=== PATIENT | female | born 1975 | race Hispanic/Latino ===

== ENCOUNTER 2020-12-15 08:25 | Observation (INO) | payer OTHER ==
[~2020-12-15] VITALS: Ht 157.5 cm; Wt 78.0 kg
[2020-12-15 08:25] VITALS: BP 142/97
[2020-12-15] MEDS ORDERED: ZOFRAN IV STA (08:45)
[2020-12-15] MEDS ORDERED: ASPIRIN PO STA (08:45)
[2020-12-15] MEDS ORDERED: ASPIRIN ONE (08:49)
[2020-12-15] MEDS ORDERED: ZOFRAN ONE (08:49)
--- NOTE | 2020-12-15 08:50 | ER.PDOC ---
General Chief Complaint: Chest Pain-Cardiac Nature Stated Complaint: CP,SOB Time seen by MD: 08:48 Source: patient Exam Limitations: no limitations History of Present Illness Initial Comments Chest pain and SOB for 1 week worse this morning. Pain is in her left chest. She also has severe headache for 1 week affected by lights. Timing/Duration: 1 week Severity/Quality: pressure Radiation: no radiation Activities at Onset: none Prior CP/Workup: Cardiac Cath, Heart Attack Nitro Today/Relief: 0.4 mg x 1 Aspirin Today: 325 mg x 1, Provided By ED Associated Symptoms: nausea/vomiting, shortness of breath Allergies: Coded Allergies: No Known Allergies (Unverified , 12/15/20) Home Meds Reported Medications Hydrochlorothiazide (HYDROCHLOROTHIAZIDE) 25 Mg Tablet, 1 TAB PO DAILY, #30 TAB 5 Refills 12/15/20 Past Medical History Medical History: coronary artery disease, hypertension Surgical History: cardiac cath, stent Family History Significant Family History: no pertinent family hx Social History Smoking: non-smoker Alcohol Use: none Drug Use: none Constitutional: no symptoms reported EENTM: no symptoms reported Respiratory: see HPI Cardiovascular: see HPI Gastrointestinal: no symptoms reported Genitourinary: no symptoms reported All Other Systems: Reviewed and Negative Physical Exam General Appearance: No Apparent Distress, WD/WN Neck: Non-Tender, Full Range of Motion, Supple, Normal Inspection Respiratory: chest non-tender, lungs clear, normal breath sounds, no respiratory distress, no accessory muscle use Cardiovascular: Normal Peripheral Pulses, Regular Rate, Rhythm, No Edema, No Gallop, No JVD, No Murmur Gastrointestinal: Normal Bowel Sounds, No Organomegaly, No Pulsatile Mass, Non Tender, Soft Extremities: Normal Range of Motion, Non-Tender, Normal Inspection, No Pedal Edema, No Calf Tenderness, Normal Capillary Refill Neurologic/Psychiatric: surveillance director II-XII NML as Tested, No Motor/Sensory Deficits, Alert, Normal Mood/Affect, Oriented x 3 Skin: Normal Color, Warm/Dry Results/Orders Results/Orders Orders - CLARA LUA MD Cbc With Auto Diff (12/15/20 08:45) Comprehensive Metabolic Panel (12/15/20 08:45) Creatine Kinase (12/15/20 08:45) Troponin I (12/15/20 08:45) Probnp B-Type Pipe Foreman (12/15/20 08:45) PT (12/15/20 08:45) Partial Thromboplastin Time. (12/15/20 08:45) D-Dimer (12/15/20 08:45) Xr Chest 1v (12/15/20 08:45) Ekg-Routine (12/15/20 08:45) Ct Head Wo Contrast (12/15/20 08:45) Nitroglycerin (Nitrostat) (12/15/20 09:00) Ondansetron Hcl/Pf (Zofran) (12/15/20 08:45) Aspirin (Aspirin) (12/15/20 08:45) Aspirin (Aspirin) (12/15/20 08:49) Ondansetron Hcl/Pf (Zofran) (12/15/20 08:49) Covid19 Antigen Radha Vivi (12/15/20 09:53) Covid Resp [place] (12/15/20 09:53) Vital Signs Date Time Temp Pulse Resp B/P (MAP) Pulse Ox O2 Delivery O2 Flow Rate FiO2 12/15/20 08:25 98.2 93 16 142/97 (112) 99 Room Air 12/15/20 08:25 98.2 93 16 12/15/20 08:25 98.2 93 16 99 Administered Medications Medications (Trade) Dose Ordered Sig/Katrin Route PRN Reason Start Time Stop Time Status Last Admin Dose Admin Aspirin (Aspirin) 325 mg STAT STAT PO 12/15/20 08:45 12/15/20 08:47 DC 12/15/20 08:54 325 MG Nitroglycerin (Nitrostat) 0.4 mg PRN PRN SL CHEST PAIN 12/15/20 09:00 01/14/21 08:59 12/15/20 09:29 0.4 MG Ondansetron HCl (Zofran) 4 mg STAT STAT IV 12/15/20 08:45 12/15/20 08:47 DC 12/15/20 08:54 4 MG Laboratory Tests Test 12/15/20 08:36 White Blood Count 7.0 10^3/uL (4.5-11.0) Red Blood Count 4.82 10^6/uL (4.00-5.20) Hemoglobin 14.1 g/dL (12.0-15.0) Hematocrit 40.6 % (36.0-46.0) Mean Corpuscular Volume 84.2 fL (78-100) Mean Corpuscular Hemoglobin 29.3 pg (26-34) Mean Corpuscular Hemoglobin Concent 34.7 g/dL (33-36.5) Red Cell Distribution Width 13.2 % (11.5-14.5) Platelet Count 424 10^3/uL (150-400) H Mean Platelet Volume 8.3 fL (7.8-11.0) Neutrophils (%) (Auto) 67.3 % (41.0-85.0) Lymphocytes (%) (Auto) 23.0 % (24.0-44.0) L Monocytes (%) (Auto) 7.2 % (5.0-12.0) Neutrophils # (Auto) 4.7 10^3/uL (1.8-7.7) Lymphocytes # (Auto) 1.60 10^3/uL1 (1.0-4.8) Monocytes # (Auto) 0.5 10^3/uL (0.3-0.8) Absolute Immature Granulocyte (auto 0.04 10^3 u/L (0-2) Absolute Eosinophils (auto) 0.1 10^3/uL (0.0-0.2) Immature Granulocytes % 0.60 % (0.00-0.50) H Eosinophils % 1.3 % (0.0-5.0) Basophils % 0.6 % (0.0-0.2) H Basophils # 0.0 10^3/uL (0.0-0.1) Prothrombin Time 10.3 SEC (9.3-11.3) Prothrombin Time INR (Non-Therap) 1.0 Activated Partial Thromboplast Time 25.4 SEC (24.67-30.72) D-Dimer 0.30 mg/L (0.19-0.49) Sodium Level 138 mmol/L (132-145) Potassium Level 3.7 mmol/L (3.6-5.2) Chloride Level 102.0 mmol/L (96-109) Carbon Dioxide Level 25.4 mmol/L (20.0-32) Anion Gap 14.3 Blood Urea Nitrogen 9 mg/dL (7-18) Creatinine 0.64 mg/dL (0.59-1.40) Estimated GFR () 122.0 (>/=60) Est GFR (CKD-EPI)(Non-Afr Yemeni) 100.8 (>/=60) BUN/Creatinine Ratio 14.0 Glucose Level 117 mg/dL (70-110) H Calcium Level 9.0 mg/dL (8.4-10.5) Total Bilirubin 0.4 mg/dL (0.2-1.0) Aspartate Amino Transferase (AST) 23 U/L (0-35) Alanine Aminotransferase (ALT) 31 U/L (12-78) Alkaline Phosphatase 67 U/L (50-136) Total Creatine Kinase 102 U/L (26-192) Troponin I < 0.02 ng/mL (0.00-0.05) Pro-B-Type Natriuretic Peptide 20 pg/mL (0-125) Total Protein 8.1 g/dL (6.4-8.2) Albumin 3.8 g/dL (3.4-5.0) Globulin 4.3 Albumin/Globulin Ratio 0.883 EKG/XRAY/CT/US EKG: NSR, LVH, no ST T wave changes EKG Comments: rate 89 XRAY: chest (No active disease) CT Comments: No acute intracranial abnormality ER DEPART Departure Time of Disposition: 09:35 Disposition: 09 ADMITTED INPATIENT Impression: Primary Impression: Chest pain Additional Impression: Headache Condition: Stable Referrals: PCP,UNKNOWN (PCP) PRIMARY CARE PROVIDER Comments Admitted to Dr. Paz Duration or Time Spent with Pa: 60 min Problem Qualifiers Primary Impression: Chest pain Chest pain type: unspecified Qualified Codes: R07.9 - Chest pain, uns pecified Additional Impression: Headache Headache type: unspecified Headache chronicity pattern: acute headache Intractability: intractable Qualified Codes: R51.9 - Headache, unspecified CLARA LUA MD Dec 15, 2020 08:50
[2020-12-15 08:52] LABS: BASOPHIL % 0.6 % (0.0-0.2); EOSINOPHIL # 0.1 10^3/uL (0.0-0.2); EOSINOPHIL % 1.3 % (0.0-5.0); MEAN CORP HGB 29.3 pg (26-34); MONOCYTES # 0.5 10^3/uL (0.3-0.8); MONOCYTES % 7.2 % (5.0-12.0); NEUTROPHIL # 4.7 10^3/uL (1.8-7.7); NEUTROPHILS % 67.3 % (41.0-85.0); PLATELET COUNT 424 10^3/uL (150-400); RED CELL DISTRIBUTION WIDTH 13.2 % (11.5-14.5)
[2020-12-15] MEDS: NITROSTAT SL PRN ×2 (08:54→09:29)
[2020-12-15 09:12] LABS: ALANINE AMINOTRANSFERASE(ML) 31 U/L (12-78); ALKALINE PHOSPHATASE 67 U/L (50-136); ASPARTATE AMINO TRANSFERASE 23 U/L (0-35); CARBON DIOXIDE 25.4 mmol/L (20.0-32); GLUCOSE 117 mg/dL (70-110)
--- NOTE | 2020-12-15 09:29 | NUR ---
pain STATES CHEST PAIN IS A 5 FROM AN 8 AFTER 1ST NITRO, 2ND DOSE ADMINISTERED.
[2020-12-15 09:30] VITALS: BP 132/84
--- NOTE | 2020-12-15 09:35 | DIREP ---
PROCEDURE:CHEST 1 VIEW COMPARISON:None. INDICATIONS:chest pain FINDINGS: LUNGS/PLEURA:The lung apices are slightly cut from the film. Findings are suspicious for a small patchy infiltrate in the right lower lobe. Left lung is clear. No CHF or effusions are seen. VASCULATURE:Normal. Unremarkable pulmonary vasculature. CARDIAC:Normal. No cardiac silhouette abnormality or cardiomegaly. Of white lumen stent projects over what appears to be the proximal descending thoracic aorta. EKG leads noted. No heart failure is seen. MEDIASTINUM:Normal. No visible mass or adenopathy. BONES:Normal. No fracture or visible bony lesion. OTHER:Negative. CONCLUSION:Findings suspicious for a small patchy infiltrate in the right lower lobe. Vascular stents over the proximal descending thoracic aorta. Recommend correlation with previous history. No heart failure or effusions are seen. Dictated by: Christian Mckeon MD on 12/15/2020 at 09:32 AM
[2020-12-15] MEDS ORDERED: HYDR25TA9 PO (09:36)
--- NOTE | 2020-12-15 09:38 | DIREP ---
PROCEDURE:CT HEAD OR BRAIN W/O CONTRAST COMPARISON:None. INDICATIONS:Headache TECHNIQUE:CT images were created without intravenous contrast. Study was reviewed on brain, subdural and bone windows. FINDINGS: VENTRICLES:The ventricles are normal in size and configuration. No significant atrophy is seen. Basal ganglia and thalamus are normal. CEREBRUM:Normal cerebral morphology with appropriate marie white matter differentiation. No evidence for unilateral hyperdense MCA sign is seen. No hyperdense venous sinus, hyperdense middle cerebral artery, effacement of sulci, loss of insular cortex or loss of lenticular nucleus is seen. No acute territorial infarct, bleed or mass lesion is seen. No acute or chronic epidural, subdural subarachnoid hemorrhage is seen. No edema, midline shift or increased intracranial pressure is seen. CEREBELLUM:Negative. No posterior fossa infarcts or mass lesions are seen. BRAINSTEM:Negative. BASAL CISTERNS:Negative. HEMORRHAGE:No MASS LESION:No ACUTE INFARCT:No SKULL:Normal. No skull fracture or scalp hematoma is seen. No radiopaque foreign body is identified. SINUSES:As visualized, no air-fluid levels in the maxillary sinuses. Incomplete evaluation of the maxillary sinuses. No air-fluid levels are seen in the sphenoid sinuses. Mild mucosal thickening in the right compartment of the sphenoid sinus. No fluid in the mastoids. OTHER:None CONCLUSION:Negative noncontrast CT of the head. No acute infarct, bleed or mass lesion is seen. Mild mucosal thickening in the right compartment of the sphenoid sinus. No air-fluid levels in the paranasal sinuses. Dictated by: Christian Mckeon MD on 12/15/2020 at 09:34 AM
[2020-12-15 10:07] VITALS: BP 136/81
[2020-12-15] MEDS ORDERED: PLAVIX PO STA (10:18)
[2020-12-15] MEDS ORDERED: NORCO 5MG PO PRN (10:30)
[2020-12-15] MEDS ORDERED: ZOFRAN IV PRN (10:30)
[2020-12-15] MEDS ORDERED: TYLENOL PO PRN (10:30)
[2020-12-15] MEDS ORDERED: MORPHINE SULFATE IV PRN (10:30)
[2020-12-15] MEDS ORDERED: PROTONIX IV IV SCH (10:30)
--- NOTE | 2020-12-15 10:56 | PCM.HP ---
History of Present Illness Hx of Present Illness 45-year-old female presented to [facility] with complaints of chest pain she rated 10 out of 10. Medical history includes coronary artery disease with single stent placement 3 years ago in [place] patient did not follow-up with a rn patient services.Patient has not been taking aspirin or Plavix or statin. Does have a primary care provider Dr. Nagy in [place] at the [facility] patient also has hypertension taking 25 mg of hydrochlorothiazide daily. Patient notes that her symptoms have been ongoing for approximately 1week patient with associated symptoms of weakness and shortness of breath describes sharp burning pain into the chest currently 5 out of 10 with radiation to all extremities according to patient's account. Patient noted to have palpation no tenderness to superior and circumferential to the left breast during breast exam. Patient notes that exquisite tenderness to palpable nodules to the left breast. Patient also describes having a headache for the past [address] scan of head revealed no acute intracranial abnormalities. Patient chest x-ray shows a single stent. Noted left basilar consolidations concerning for community-acquired pneumonia.EKG normal sinus rhythm initial troponin 0 0.02 unremarkable,We will continue to trend. Past Medical History PMH-Cardiac: (1) Hypertension Cardiovascular: HTN Status: Chronic ICD Code: I10 - Essential (primary) hypertension SNOMED: 15723455 (2) Coronary artery disease Cardiovascular: CAD Status: Chronic ICD Code: I25.10 - Atherosclerotic heart disease of [place] coronary artery without angina pectoris SNOMED: 30792314 Travel History EBOLA RISK:Travel to/contact w: No Is pt experiencing any Ebola s: No Review of Systems Constitutional: No: Fever, Chills, Sweats, Weakness, Malaise, Other Eyes: No: Pain, Vision change, Conjunctivae inflammation, Eyelid inflammation, Other, Redness ENT: No: Ear pain, Ear discharge, Nose pain, Nose discharge, Nose congestion, Mouth pain, Mouth swelling, Throat pain, Throat swelling, Other Respiratory: Cough, Shortness of breath, SOB with excertion Cardiovascular: Chest Pain, Orthopnea Gastrointestinal: No: Nausea, Vomiting, Abdominal Pain, Diarrhea, Constipation, Melena, Hematochezia, Other Genitourinary: No Dysuria, No Frequency, No Incontinence, No Hematuria, No Retention, No Other Musculoskeletal: No: other, neck pain, shoulder pain, arm pain, back pain, hand pain, leg pain, foot pain Skin: No: Rash, Lesions, Jaundice, Bruising, Other Neurological: Other (Headache); No: Weakness, Numbness, Incoordination, Change in speech, Confusion, Seizures Allergies: Coded Allergies: No Known Allergies (Unverified , 12/15/20) Scheduled Hydrochlorothiazide (Hydrochlorothiazide), 1 TAB PO DAILY, (Reported) VTE VTE Risk Score VTE Risk: Score 0-1 = Low Risk (Aggressive mobilization; early ambulation; no VTE prophylaxis required) Score 2: Moderate Risk (Intermittent/Pneumatic Compression Device OR Lovenox/Heparin/Coumadin) Score 3-4: High Risk (Intermittent/Pneumatic Compression Device AND Lovenox/Heparin/Coumadin) Score > or =5: Highest Risk (Intermittent/Pneumatic Compression Device AND Lovenox/Heparin/Coumadin) Antico:Hep/LMWH/Coum/Xarelto: No Mechanical device ordered: Yes VTE VTE Present on Admission: No Currently receiving anticoagul: No Antico:Hep/LMWH/Coum/Xarelto: No Mechanical device ordered: Yes Protocol for Platelet Monitori: Tx adjusted per protocol Exam Vital Signs Vital Signs Date Time Temp Pulse Resp B/P (MAP) Pulse Ox O2 Delivery O2 Flow Rate FiO2 12/15/20 10:07 83 136/81 (99) 99 12/15/20 08:25 98.2 16 Room Air Patient with exquisite palpation no tenderness to left breast circumferential nodules noted General Appearance: Alert, Oriented X3, Cooperative, No acute distress HEENT: Atraumatic, PERRLA, EOMI, Mucous membr. moist/pink Respiratory: Clear to auscultation, Normal air movement Cardiovascular: Regular rate, Normal S1, Normal S2, No murmurs Abdominal: Normal bowel sounds, Soft, No tenderness Extremities: No clubbing, No cyanosis, No edema, Normal pulses Skin: No rash, No breakdown, No lesions Neuro: Normal speech, Strength at 5/5 X4 ext, Normal tone, Sensation intact, Cranial nerves 3-12 NL Psych/Mental Status: Mental status NL, Mood NL Assessment/Plan Assessment/Plan Assessment/Plan 45-year-old female presented to [facility] with complaints of chest pain she rated 10 out of 10. Medical history includes coronary artery disease with single stent placement 3 years ago in [place] patient did not follow-up with a rn patient services.Patient has not been taking aspirin or Plavix or statin. Does have a primary care provider Dr. Nagy in [place] at the [facility] patient also has hypertension taking 25 mg of hydrochlorothiazide daily. Patient notes that her symptoms have been ongoing for approximately 1week patient with associated symptoms of weakness and shortness of breath describes sharp burning pain into the chest currently 5 out of 10 with radiation to all extremities according to patient's account. Patient noted to have palpation no tenderness to superior and circumferential to the left breast during breast exam. Patient notes that exquisite tenderness to palpable nodules to the left breast. Patient also describes having a headache for the past [address] scan of head revealed no acute intracranial abnormalities. Patient chest x-ray shows a single stent. Noted left basilar consolidations concerning for community-acquired pneumonia.E KG normal sinus rhythm initial troponin 0 0.02 unremarkable,We will continue to trend. Plan Chest pain EKG-normal sinus rhythm Troponin we will continue to trend initial Unremarkable at 0.02 We will initiate Plavix therapy with 300 mg dose and then transition to 75 daily Aspirin 325 given in ED we will continue with 81 daily Statin therapy initiated Nitroglycerin as needed Echocardiogram-pending Lipid panel-pending Cardiac telemetry IV opioid-morphine as needed CTA of chest rule out PE-Pending Left breast pain Mammogram P.o. analgesics CTA of chest-Pending Community-acquired pneumonia Initiate doxycycline antimicrobial therapy Chest x-ray revealed consolidation to the left base Oxygen available supplemental as needed currently on room air Hypertension Hydrochlorothiazide 25 mg p.o. daily DVT prophylaxis: SCD PPI prophylaxis: Tonics CODE STATUS: Wishes to remain a full code Problem Qualifiers (1) Hypertension: Hypertension type: unspecified Qualified Codes: I10 - Essential (primary) hypertension (2) Coronary artery disease: Coronary Disease-Associated Artery/Lesion type: unspecified vessel or lesion type [place] vs. transplanted heart: sh[place] heart Associated angina: with unspecified angina Qualified Codes: I25.119 - Atherosclerotic heart disease of [place] coronary artery with unspecified angina pectoris DAVONTE LINDSAY NP Dec 15, 2020 10:56
[2020-12-15] MEDS ORDERED: NS 100ML 100 ML IV ONE (10:58)
[2020-12-15] MEDS ORDERED: PLAVIX ONE (10:59)
[2020-12-15] MEDS: VIBRAMYCIN 100 MG in NS 100ML 100 ML IV SCH ×2 (11:13→20:49)
[2020-12-15] MEDS: NS 1000ML 1,000 ML IV SCH (11:14)
--- NOTE | 2020-12-15 11:34 | DIREP ---
PROCEDURE:CT PULMONARY ANGIOGRAM TECHNIQUE:Following the intravenous administration of contrast material, axial cuts were obtained through the chest. Sagittal and coronal MIP post-processing reconstructions are provided. Satisfactory pulmonary arterial contrast opacification was achieved. The images were viewed at lung and soft tissue settings. The study was reviewed on abdominal, lung, liver and bone windows. The CT venogram was not performed. COMPARISON:None. INDICATIONS:Dyspnea , Breast tenderness FINDINGS: PULMONARY ARTERIES:Patent. No evidence for pulmonary embolism. No intraluminal filling defect or vessel cutoff is identified to suggest pulmonary embolism. LUNGS:No significant pulmonary parenchymal abnormalities. Review of the lungs, shows no evidence for ground-glass interstitial infiltrates. No air bronchograms, or airspace consolidation is seen. PLEURA:Normal. No evidence of pericardial or pleural effusions are seen. CARDIAC:Normal size heart and normal pulmonary vascularity. THORACIC AORTA:A vascular stent identified involving the proximal descending thoracic aorta from the junction of the arch and the descending thoracic aorta up to the mid descending thoracic aorta. On the soft tissue windows, no aortic dissection is seen. Pulsation artifacts noted. Mildly dilated ascending aorta. MEDIASTINUM:Normal. BONES:Normal. THYROID:Normal. OTHER:No additional findings. CONCLUSION:No evidence for pulmonary embolism. The CT venogram was not performed. White lumen stent identified in the proximal descending thoracic aorta. Mildly dilated ascending aorta. No aneurysm or dissection is seen. No ground-glass infiltrates are seen. No pneumonia, pulmonary vascular congestion or effusions are seen. Dictated by: Christian Mckeon MD on 12/15/2020 at 11:22 AM
--- NOTE | 2020-12-15 11:45 | NUR ---
admit PT TAKEN TO [facility] VIA W/C IN STABLE CONDITION. REPORT GIVEN TO ANA.
[2020-12-15 12:09] VITALS: BP 154/89
--- NOTE | 2020-12-15 12:10 | NUR ---
PATIENT ARRIVED TO UNIT VIA TRANSPORT CHAIR. NO ACUTE CARDIOPULMONARY SYMPTOMS NOTED. TELE 12, NSR. REPORTS INTERMITTENT L CHEST PAIN. MEDICATED WITH NORCO. ORIENTED TO UNIT/ROOM/USE OF CALL LIGHT/BED FUNCTION.
--- NOTE | 2020-12-15 13:38 | NUR ---
2nd troponin < 0.02 notified Mr Davonte, PER MR DAVONTE "ECHO CAN BE DONE PRIOR TO DC LIKELY IN AM". RT [place] LAW IS AWARE.
--- NOTE | 2020-12-15 13:46 | NUR ---
DAUGHTER AT BEDSIDE. TOLERATED LUNCH WITHOUT ANY COMPLAINTS OF GI UPSET. CURRENT ON MENSES.
--- NOTE | 2020-12-15 16:37 | NUR ---
PCP: Dr Rom Oconnell: [place]
[2020-12-15 16:59] VITALS: BP 111/67
--- NOTE | 2020-12-15 19:01 | PCM.EKG ---
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
[2020-12-15 19:32] VITALS: BP 120/78
[2020-12-15] MEDS ORDERED: LIPITOR ONE ×2 (20:17→20:19)
[2020-12-15] MEDS: COLACE PO SCH (20:49)
[2020-12-15] MEDS ORDERED: ASPIRIN PO SCH (21:00)
[2020-12-15] MEDS ORDERED: LIPITOR PO SCH (21:00)
[2020-12-16] MEDS: NS 1000ML 1,000 ML IV SCH (00:15)
[2020-12-16 00:39] VITALS: BP 121/76
[2020-12-16 04:36] VITALS: BP 119/73
[2020-12-16 08:13] VITALS: BP 117/74
[2020-12-16] MEDS: COLACE PO SCH (08:32)
[2020-12-16] MEDS: VIBRAMYCIN 100 MG in NS 100ML 100 ML IV SCH (08:32)
[2020-12-16] MEDS ORDERED: HYDROCHLOROTHIAZIDE PO SCH (09:00)
[2020-12-16] MEDS ORDERED: PLAVIX PO SCH (09:00)
[2020-12-16] MEDS ORDERED: ASPIRIN PO SCH (09:00)
[2020-12-16] MEDS ORDERED: CLOP75TA PO (10:05)
[2020-12-16] MEDS ORDERED: ACET1TAB34 PO (10:05)
[2020-12-16] MEDS ORDERED: NITR0.4T SL (10:05)
[2020-12-16] MEDS ORDERED: ATOR40TA PO (10:05)
[2020-12-16] MEDS ORDERED: ASPI-667 PO (10:05)
--- NOTE | 2020-12-16 10:17 | PRM.DC ---
Discharge Summary Date of Discharge: Dec 16, 2020 Time of Request to Discharge: 10:09 Hospital Course Assessment/Plan 45-year-old female presented to [facility] with complaints of chest pain she rated 10 out of 10. 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 Does have a primary care provider Dr. Nagy in [place] at the [facility] patient also has hypertension taking 25 mg of hydrochlorothiazide daily. Patient notes that her symptoms have been ongoing for approximately 1week patient with associated symptoms of weakness and shortness of breath describes sharp burning pain into the chest currently 5 out of 10 with radiation to all extremities according to patient's account. Patient noted to have palpation no tenderness to superior and circumferential to the left breast during breast exam. Patient notes that exquisite tenderness to palpable nodules to the left breast. Patient also describes having a headache for the past [address] scan of head revealed no acute intracranial abnormalities. Patient chest x-ray shows a single stent. Noted left basilar consolidations concerning for community-acquired pneumonia.EKG normal sinus rhythm initial troponin 0 0.02 unremarkable,We will continue to trend. Plan Chest pain - resolved EKG-normal sinus rhythm Troponin we will continue to trend initial Unremarkable at 0.02 x3 We will initiate Plavix therapy with 300 mg dose and then transition to 75 daily Aspirin 325 given in ED we will continue with 81 daily Statin therapy initiated Nitroglycerin as needed Echocardiogram-pending [facility] and pt to follow up Cardiac telemetry IV opioid-morphine as needed CTA of chest rule out PE- unremarkable Left breast pain- resolved with po analgesics Mammogram as outpatient P.o. analgesics CTA of chest-unremarkable Community-acquired pneumonia Initiate doxycycline antimicrobial therapy for 7 days Chest x-ray revealed consolidation to the left base Oxygen available supplemental as needed currently on room air Hypertension continue Hydrochlorothiazide 25 mg p.o. daily DVT prophylaxis: SCD PPI prophylaxis: protonix CODE STATUS: Wishes to remain a full code Patient History: Diabetes mellitus G8 MOTHER G8 FATHER Hypertension G8 MOTHER G8 FATHER Exam/Vitals breast tenderness to palpation Left General: Alert, Oriented X3, Cooperative HEENT: Atraumatic, PERRLA, EOMI Neck: Supple, No JVD, No thyromegaly Lungs: Clear to auscultation, Normal air movement Heart: Regular rate, Normal S1, Normal S2, No murmurs Abdomen: Normal bowel sounds, Soft, No tenderness Extremities: No clubbing, No cyanosis, No edema Skin: No rashes, No breakdown, No significant lesion Neuro: Normal gait, Normal speech, Strength at 5/5 X4 ext, Sensation intact Psych/Mental Status: Mental status NL, Mood NL Scheduled Aspirin (Aspirin), 81 MG PO DAILY24 Atorvastatin 40MG (Lipitor 40MG), 20 MG PO HS Clopidogrel Bisulfate (Clopidogrel), 75 MG PO DAILY Hydrochlorothiazide (Hydrochlorothiazide), 1 TAB PO DAILY, (Reported) Scheduled PRN Acetaminophen With Codeine (Tylenol-Cod #3 Tablet), 1 TAB PO Q6 PRN for PAIN 7 - 10 Nitroglycerin (Nitrostat), 0.4 MG SL PRN PRN for CHEST PAIN Sepsis Evaluation @ Discharge 12/16/20 07:29 Review of Systems Constitutional: denies no symptoms reported, denies see HPI, denies chills, denies diaphoresis, denies fever, denies malaise, denies weakness, denies other EENTM: denies no symptoms reported, denies see HPI, denies eye pain, denies blurred vision, denies tearing, denies double vision, denies ear pain, denies ear discharge, denies nose pain, denies nose congestion, denies throat pain, denies throat swelling, denies mouth pain, denies mouth swelling, denies other Respiratory: denies no symptoms reported, denies see HPI, denies cough, denies orthopnea, denies shortness of breath, denies stridor, denies wheezing, denies other Cardiovascular: denies no symptoms reported, denies see HPI, denies chest pain, denies edema, denies palpitations, denies syncope, denies other Gastrointestinal: denies no symptoms reported, denies see HPI, denies abdominal pain, denies constipation, denies diarrhea, denies nausea, denies vomiting, denies other Musculoskeletal: denies no symptoms reported, denies see HPI, denies back pain, denies gout, denies joint pain, denies joint swelling, denies muscle pain, denies muscle stiffness, denies neck pain, denies other Skin: denies no symptoms reported, denies see HPI, denies change in color, denies change in hair/nails, denies dryness, denies lesions, denies lumps, denies rash, denies other Psychiatric/Neurological: denies no symptoms reported, denies see HPI, denies anxiety, denies depressed, denies emotional problems, denies headache, denies numbness, denies paresthesia, denies pre-existing deficit, denies seizure, denies tingling, denies tremors, denies weakness, denies other Endocrine: denies no symptoms reported, denies see HPI, denies excessive sweating, denies flushing, denies intolerance to cold, denies intolerance to heat, denies increased hunger, denies increased thrist, denies increased urine, denies unexplained weight gain, denies unexplaned weight loss, denies other Hematologic/Lymphatic: denies no symptoms reported, denies see HPI, denies anemia, denies blood clots, denies easy bleeding, denies easy bruising, denies swollen glands, denies other All Other Systems: Reviewed and Negative Course Sepsis Screening Results: Posi: NEGATIVE Sepsis Qualifier/Stage: NO DEFINITE RISK Duration or Total Time Spent w: 60 min Vitals & review Data Vital Sign - Last 24 Hours 12/15/20 12/15/20 12/15/20 12/15/20 12:09 13:38 16:59 19:32 Temp 98.1 98.4 98.8 Pulse 78 77 80 Resp 17 18 18 B/P (MAP) 111/67 (82) 120/78 (92) Pulse Ox 96 95 98 O2 Delivery Room Air O2 Flow Rate 93.00 12/16/20 12/16/20 12/16/20 12/16/20 00:39 00:45 04:36 08:13 Temp 98.6 97.5 98.2 Pulse 85 89 87 Resp 18 18 24 B/P (MAP) 121/76 (91) 119/73 (88) 117/74 (88) Pulse Ox 98 97 95 O2 Delivery Room Air Room Air O2 Flow Rate 98.00 12/16/20 08:32 B/P (MAP) 117/74 Intake and Output 12/16/20 07:00 Intake Total 1460 ml Output Total 900 ml Balance 560 ml Laboratory Tests Test 1/30/21 08:36 12/15/20 09:48 12/15/20 12:10 12/15/20 16:05 White Blood Count 7.0 10^3/uL Red Blood Count 4.82 10^6/uL Hemoglobin 14.1 g/dL Hematocrit 40.6 % Mean Corpuscular Volume 84.2 fL Mean Corpuscular Hemoglobin 29.3 pg Mean Corpuscular Hemoglobin Concent 34.7 g/dL Red Cell Distribution Width 13.2 % Platelet Count 424 10^3/uL Mean Platelet Volume 8.3 fL Neutrophils (%) (Auto) 67.3 % Lymphocytes (%) (Auto) 23.0 % Monocytes (%) (Auto) 7.2 % Neutrophils # (Auto) 4.7 10^3/uL Lymphocytes # (Auto) 1.60 10^3/uL1 Monocytes # (Auto) 0.5 10^3/uL Absolute Immature Granulocyte (auto 0.04 10^3 u/L Absolute Eosinophils (auto) 0.1 10^3/uL Immature Granulocytes % 0.60 % Eosinophils % 1.3 % Basophils % 0.6 % Basophils # 0.0 10^3/uL Prothrombin Time 10.3 SEC Prothrombin Time INR (Non-Therap) 1.0 Activated Partial Thromboplast Time 25.4 SEC D-Dimer 0.30 mg/L Sodium Level 138 mmol/L Potassium Level 3.7 mmol/L Chloride Level 102.0 mmol/L Carbon Dioxide Level 25.4 mmol/L Anion Gap 14.3 Blood Urea Nitrogen 9 mg/dL Creatinine 0.64 mg/dL Estimated GFR () 122.0 Est GFR (CKD-EPI)(Non-Afr Lao) 100.8 BUN/Creatinine Ratio 14.0 Glucose Level 117 mg/dL Calcium Level 9.0 mg/dL Total Bilirubin 0.4 mg/dL Aspartate Amino Transf (AST/SGOT) 23 U/L Alanine Aminotransferase (ALT/SGPT) 31 U/L Alkaline Phosphatase 67 U/L Total Creatine Kinase 102 U/L 102 U/L 90 U/L Troponin I < 0.02 ng/mL < 0.02 ng/mL < 0.02 ng/mL Pro-B-Type Natriuretic Peptide 20 pg/mL Total Protein 8.1 g/dL Albumin 3.8 g/dL Globulin 4.3 Albumin/Globulin Ratio 0.883 Nasal Adenovirus (PCR) NotDetected Nasal Coronavirus Type 229E (PCR) NotDetected Nasal Coronavirus Type HKU1 (PCR) NotDetected Nasal Coronavirus Type NL63 (PCR) NotDetected Nasal Coronavirus Type OC43 (PCR) NotDetected Nasal Enterovirus/Rhinovirus (PCR) DETECTED Nasal Influenza Type A (H1) (PCR) NotDetected Nasal Influenza Type A (H3) (PCR) NotDetected Nasal Swab Influenza Virus B (PCR) NotDetected Nasal Parainfluenza Type 1 (PCR) NotDetected Nasal Parainfluenza Type 2 (PCR) NotDetected Nasal Parainfluenza Type 3 (PCR) NotDetected Nasal Parainfluenza Type 4 (PCR) NotDetected Nasal Resp Syncytial Virus (PCR) NotDetected Nasal Bordetella pertussis DNA (PCR NotDetected Nasal Chlamydophila pneumoniae (PCR NotDetected Nasal Human Metapneumovirus (PCR) NotDetected Nasal Mycoplasma pneumoniae (PCR) NotDetected Nasal SARS-CoV-2 (PCR) NotDetected Influenza Type A (H1N1/09) (PCR) NotDetected SARS-CoV-2 Antigen (Rapid) NEGATIVE Current Medications Medications (Trade) Dose Ordered Sig/Katrin PRN Reason Start Time Stop Time Status Last Admin Acetaminophen (Tylenol) 1,000 mg Q6H PRN PAIN 1 - 3 12/15/20 10:30 01/14/21 10:29 Acetaminophen/ Hydrocodone Bitart ([place] 5mg) 1 ea Q6 PRN PAIN 4 - 6 12/15/20 10:30 01/14/21 10:29 12/15/20 12:26 Atorvastatin Calcium (Lipitor) 40 mg HS 12/15/20 21:00 01/14/21 20:59 12/15/20 20:49 Clopidogrel Bisulfate (Plavix) 75 mg DAILY 12/16/20 09:00 01/15/21 08:59 12/16/20 08:32 Docusate Sodium (Colace) 100 mg BID 12/15/20 21:00 01/14/21 20:59 12/16/20 08:32 Doxycycline Hyclate 100 mg/ Sodium Chloride 100 ml @ 100 mls/hr BID 12/15/20 10:30 01/14/21 10:29 12/16/20 08:32 Hydrochlorothiazide (Hydrochlorothiazide) 25 mg DAILY 12/16/20 09:00 01/15/21 08:59 12/16/20 08:32 Morphine Sulfate (Morphine Sulfate) 2 mg Q4 PRN CHEST PAIN 12/15/20 10:30 01/14/21 10:29 Nitroglycerin (Nitrostat) 0.4 mg PRN PRN CHEST PAIN 12/15/20 09:00 01/14/21 08:59 12/15/20 09:29 Ondansetron HCl (Zofran) 4 mg Q4H PRN NAUSEA / VOMITING 12/15/20 10:30 01/14/21 10:29 12/15/20 16:22 Pantoprazole Sodium (Protonix Iv) 40 mg OT 12/15/20 10:30 01/14/21 10:29 Sodium Chloride 1,000 ml @ 75 mls/hr [id number] 12/15/20 11:00 01/14/21 10:59 12/16/20 00:15 LEVEL 1 SEPSIS INFECTION CRITE: None/Not assessed Cardiovascular Evidence: Not Assessed or None Hematologic Evidence: None/Not assessed Hepatic Evidence: None/Not assessed Metabolic Evidence: None/Not assessed Neurological Evidence: None/Not assessed Respiratory Evidence: None/Not assessed Renal Evidence: None/Not assessed O2 Sat by Pulse Oximetry: 95 Oxygen Flow Rate: 98.00 Plan Assessment Assessment/Plan 45-year-old female presented to [facility] with complaints of chest pain she rated 10 out of 10. 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 Does have a primary care provider Dr. Nagy in [place] at the [facility] patient also has hypertension taking 25 mg of hydrochlorothiazide daily. Patient notes that her symptoms have been ongoing for approximately 1week patient with associated symptoms of weakness and shortness of breath describes sharp burning pain into the chest currently 5 out of 10 with radiation to all extremities according to patient's account. Patient noted to have palpation no tenderness to superior and circumferential to the left breast during breast exam. Patient notes that exquisite tenderness to palpable nodules to the left breast. Patient also describes having a headache for the past [address] scan of head revealed no acute intracranial abnormalities. Patient chest x-ray shows a single stent. Noted left basilar consolidations concerning for community-acquired pneumonia.EKG normal sinus rhythm initial troponin 0 0.02 x3 . Breast pain has subsided with po analgesics and still minor palpation pain to left breast. Recommend Mammogram and follow up with PCP . Pt chest pain free , troponins negative , NSR, will send home with following Rx for DAPT plavix and ASA, continue HCTZ home med for HTN, PO analgesics for breast pain. will also start statin therapy with lipid panel eval with PCP. Echo read pending from [facility] . Follow up with [facility] within one week for further evaluation. Discharge Disposition: Stable Plan Plan Chest pain - resolved EKG-normal sinus rhythm Troponin we will continue to trend initial Unremarkable at 0.02 x3 We will initiate Plavix therapy with 300 mg dose and then transition to 75 daily Aspirin 325 given in ED we will continue with 81 daily Statin therapy initiated Nitroglycerin as needed Echocardiogram-pending [facility] read and pt to follow up CTA of chest rule out PE- unremarkable Left breast pain- resolved with po analgesics Mammogram as outpatient P.o. analgesics CTA of chest-unremarkable Community-acquired pneumonia Initiate doxycycline antimicrobial therapy for 7 days Chest x-ray revealed consolidation to the left base Oxygen available supplemental as needed currently on room air Hypertension continue Hydrochlorothiazide 25 mg p.o. daily DAVONTE LINDSAY NP Dec 16, 2020 10:16
--- NOTE | 2020-12-16 11:32 | NUR ---
Discharge pt to home. Discharge instructions given and papers signed by patient.Vital signs stable, no s/s distress.Peripheral IV to R AC removed. Pt transported off unit via w/c to vehicle, accompanied by daughter.
[2020-12-16 12:14] VITALS: BP 117/74
--- NOTE | 2020-12-17 19:04 | PCM.ECHO ---
APPROVED REPORT EXAM: Comprehensive 2D, Doppler, and color-flow Echocardiogram. Patient Location: IN-PATIENT Rhythm: NSR Indications Chest Pain 2D Dimensions LVOT Diameter 2.14 (1.8-2.4cm) LVEF(%) 46.03 (>50%) M-Mode Dimensions Left Atrium(MM) 2.95 (2.5-4.0cm) IVSd 0.75 (0.7-1.1cm) Aortic Root 2.80 (2.2-3.7cm) LVDd 5.25 (4.0-5.6cm) Aortic Cusp Exc 1.95 (1.5-2.0cm) PWd 0.90 (0.7-1.1cm) MV EPSS 1.58 (<0.5cm) IVSs 1.40 cm FS (%) 39.20 % LVDs 3.15 (2.0-3.8cm) ESV(Teich) 40.72 ml PWs 1.50 cm LVEF(%) 69.27 (>50%) Volumes Biplane 2D LV Volumes Biplane 2D LA Volumes LVEDv A4C 140.76 mL LA ESV Index LVESv A4C 75.96 mL Aortic Valve AoV Peak Sean. 1.50 m/s AoV VTI 24.65 cm AO Peak GR. 9.25 mmHg AO Mean GR. 4.85 mmHg LVOT VTI 14.87 cm LVOT Peak Sean. 0.63 m/s KIMBERLY(VTI)/BSA 2.17 cm2/m2 KIMBERLY (VTI) 2.17 cm2 AI P 1/2 Time 457.20 ms Mitral Valve MV E Velocity 0.95m/s MR Peak Gr. 3.85mmHg MV A Velocity 0.75m/s Pulmonary Valve PV Peak Velocity 0.75m/s PV Peak Grad. 2.30mmHg RVOT VTI 15.04cm Tricuspid Valve TR P. Velocity 1.95m/s RAP ESTIMATE 10.00mmHg TR Peak Gr. 15.24mmHg RVSP 25.24mmHg LEFT VENTRICLE The left ventricle is normal size. The left ventricular systolic function is normal. The left ventricular ejection fraction is within the normal range. There is normal left ventricular wall thickness. There is normal LV segmental wall motion. There is no ventricular septal defect visualized. No left ventricle thrombus noted on this study. LVEF is 60-65%. RIGHT VENTRICLE The right ventricle is normal size. The right ventricular systolic function is normal. There is normal right ventricular wall thickness. ATRIA The left atrium size is normal. The right atrium size is normal. The interatrial septum is intact with no evidence for an atrial septal defect. AORTIC VALVE The aortic valve is normal in structure. There is no aortic valvular stenosis. Moderate to severe aortic regurgitation There is no aortic valvular vegetation. MITRAL VALVE The mitral valve is normal in structure. There is no mitral valve stenosis. There is no mitral valve regurgitation noted. There is no evidence of mitral valve vegetations. TRICUSPID VALVE The tricuspid valve is normal in structure. There is no tricuspid valve stenosis. Moderate tricuspid regurgitation. There is no tricuspid valve vegetations. PULMONIC VALVE The pulmonary valve is normal in structure. There is no pulmonic valvular stenosis. Mild pulmonic regurgitation. There is no pulmonic valve vegetations. GREAT VESSELS The aortic root is normal in size. The pulmonary artery is normal. Aortic arch is not well visualized. The IVC is normal in size and collapses >50% with inspiration. PERICARDIUM There is no pericardial effusion. There is no pleural effusion. Other Information Study Quality: Fair <Conclusion> The left ventricular systolic function is normal. LVEF is 60-65%. Moderate to severe aortic regurgitation Moderate tricuspid regurgitation. Mild pulmonic regurgitation. Electronically signed by : REMA ABARCA. 12/17/2020 19:04:17
== END 2020-12-16 11:57 | disposition home or self-care (01) ==
LOC: ER 08:25 → MS 09:31
PROVIDERS: ADMIT Family Medicine; ATTEND Family Medicine
DX: R07.89 Other chest pain (principal); Z20.822 Contact with and (suspected) exposure to COVID-19; N64.4 Mastodynia; J18.9 Pneumonia, unspecified organism; I10 Essential (primary) hypertension; I25.119 Atherosclerotic heart disease of native coronary artery with unspecified angina pectoris; R51.9 Headache, unspecified; I25.2 Old myocardial infarction; Z79.82 Long term (current) use of aspirin; Z79.899 Other long term (current) drug therapy
CPT/HCPCS: 36415; 70450; 71045; 71275; 80053; 82550 ×3; 83880; 84484 ×3; 85025; 85379; 85610; 85730; 87426; 87633; 93005; 93306; 96361; 96365; 96366 ×2; 96375; 96376; 99285; A9150; G0378 ×25; J2405 ×2; J7030 ×2; J7050 ×2; Q9965; J3490

== ENCOUNTER 2022-03-10 17:19 | Observation (INO) | payer OTHER ==
[~2022-03-10] VITALS: Ht 165.1 cm; Wt 83.0 kg
[~2022-03-10 17:19] MED LIST: ACET1TAB57 PO; ASPI-667 PO; ATOR40TA PO; CLOP75TA PO; HYDR25TA9 PO; NITR0.4T SL
[2022-03-10 17:32] VITALS: BP 152/99
[2022-03-10] MEDS ORDERED: ASPIRIN PO STA (17:37)
[2022-03-10] MEDS ORDERED: ASPIRIN ONE (17:39)
[2022-03-10 17:40] LABS: BASOPHIL % 0.5 % (0.0-0.2); EOSINOPHIL # 0.1 10^3/uL (0.0-0.2); EOSINOPHIL % 0.9 % (0.0-5.0); LYMPHOCYTES % 27.5 % (24.0-44.0); MEAN CORP HGB 29.4 pg (26-34); MONOCYTES # 0.6 10^3/uL (0.3-0.8); MONOCYTES % 7.6 % (5.0-12.0); PLATELET COUNT 440 10^3/uL (150-400); RED CELL DISTRIBUTION WIDTH 13.7 % (11.5-14.5)
--- NOTE | 2022-03-10 17:46 | PCM.EKG ---
[facility] Test Date: 2022-03-10 Test Time: 17:23:30 Pat Name: IRMA Harrispartment: Room: 331 Gender: F Special Order Jeweler: VANESSA : 1975 Requested By: CLARA LUA Order Number: [id number] Reading MD: Clara LUA Measurements Intervals [place] Rate: 84 P: 49 AL: 130 QRS: -57 QRSD: 105 T: 8 QT: 376 QTc: 445 Interpretive Statements Sinus rhythm Left anterior fascicular block Abnormal R-wave progression, late transition Borderline T abnormalities, anterior leads Baseline wander in lead(s) V6 Compared to ECG 12/15/2020 08:26:12 T-wave abnormality now present Electronically Signed On 03-11-2022 8:02:14 CDT by Clara LUA Please click the below link to view image of tracing.
[2022-03-10] MEDS ORDERED: NITROSTAT SL PRN (18:00)
[2022-03-10 18:05] LABS: CARBON DIOXIDE 23.5 mmol/L (20.0-32)
--- NOTE | 2022-03-10 18:06 | DIREP ---
PROCEDURE:CHEST 1 VIEW COMPARISON:CT, CTA CHEST, 12/15/2020, 10:56 AM. [facility], CR, XRAY CHEST SINGLE VW, 12/15/2020, 08:59 AM. INDICATIONS:Chest pain FINDINGS: LUNGS/PLEURA:Lordotic positioning. Mild, diffuse interstitial prominence. No focal consolidation, pleural effusion, or pneumothorax. VASCULATURE:Mildly prominent pulmonary vasculature. Descending thoracic aortic stent graft. CARDIAC:Normal. No cardiac silhouette abnormality or cardiomegaly. MEDIASTINUM:Normal. No visible mass or adenopathy. BONES:No acute osseus abnormality. OTHER:Negative. CONCLUSION: 1. Mild pulmonary vascular congestion and interstitial prominence. Could indicate evolving CHF/fluid overload. 2. No focal consolidation. Dictated by: Usama Mckeon MD on 03/10/2022 at 06:02 PM
--- NOTE | 2022-03-10 18:11 | ER.PDOC ---
General Chief Complaint: Chest Pain-Cardiac Nature Stated Complaint: RIGHT ARM/CHEST/BACKPAIN Time seen by MD: 18:09 Source: patient Exam Limitations: no limitations History of Present Illness Initial Comments Chest pain for 1 month worse today. Pain radiates to the back and the right arm. No shortness of breath. No diaphoresis. No nausea or vomiting. Severity/Quality: moderate, tightness Radiation: arms (right), back Activities at Onset: none Prior CP/Workup: Cardiac Cath Nitro Today/Relief: 0.4 mg x 1 Aspirin Today: 325 mg x 1, Provided By ED Associated Symptoms: denies symptoms Allergies: Coded Allergies: No Known Allergies (Unverified , 12/15/20) Home Meds Active Scripts Acetaminophen With Codeine (TYLENOL-COD #3 TABLET) 1 Each Tablet, 1 TAB PO Q6 PRN for PAIN 7 - 10, #30 TAB Prov:DAVONTE LINDSAY LIBRARY TECHNICIAN 12/16/20 Aspirin (ASPIRIN) 81 Mg Tab.chew, 81 MG PO DAILY24, #30 TAB.CHEW Prov:DAVONTE LINDSAY LIBRARY TECHNICIAN 12/16/20 Atorvastatin 40MG (LIPITOR 40MG) 40 Mg Tablet, 20 MG PO HS for 30 Days, TAB Prov:DAVONTE LINDSAY LIBRARY TECHNICIAN 12/16/20 Nitroglycerin (NITROSTAT) 0.4 Mg Tab.subl, 0.4 MG SL PRN PRN for CHEST PAIN for 5 Days, #10 TAB Prov:DAVONTE LINDSAY LIBRARY TECHNICIAN 12/16/20 Clopidogrel Bisulfate (CLOPIDOGREL) 75 Mg Tablet, 75 MG PO DAILY for 30 Days, TAB Prov:DAVONTE LINDSAY LIBRARY TECHNICIAN 12/16/20 Reported Medications Hydrochlorothiazide (HYDROCHLOROTHIAZIDE) 25 Mg Tablet, 1 TAB PO DAILY, #30 TAB 5 Refills 12/15/20 Past Medical History Medical History: hypertension Surgical History: stent Family History Significant Family History: no pertinent family hx Social History Smoking: non-smoker Alcohol Use: occassionally Drug Use: none Constitutional: no symptoms reported EENTM: no symptoms reported Respiratory: no symptoms reported Cardiovascular: see HPI Gastrointestinal: no symptoms reported All Other Systems: Reviewed and Negative Physical Exam General Appearance: No Apparent Distress, WD/WN HEENT: PERRL/EOMI, Normal ENT Inspection, TMs Normal, Pharynx Normal Neck: Non-Tender, Full Range of Motion, Supple, Normal Inspection Respiratory: chest non-tender, lungs clear, normal breath sounds, no respiratory distress, no accessory muscle use Cardiovascular: Normal Peripheral Pulses, Regular Rate, Rhythm, No Edema, No Gallop, No JVD, No Murmur Gastrointestinal: Normal Bowel Sounds, No Organomegaly, No Pulsatile Mass, Non Tender, Soft Extremities: Normal Range of Motion, Non-Tender, Normal Inspection, No Pedal Edema, No Calf Tenderness, Normal Capillary Refill Neurologic/Psychiatric: weld engineer II-XII NML as Tested, No Motor/Sensory Deficits, Alert, Normal Mood/Affect, Oriented x 3 Skin: Normal Color, Warm/Dry Lymphatic: No Adenopathy Results/Orders Results/Orders Orders - CLARA LUA MD Cbc With Auto Diff (03/10/22 17:31) Comprehensive Metabolic Panel (03/10/22 17:31) Creatine Kinase (03/10/22 17:31) Creatine Kinase Mb (03/10/22 17:31) Probnp B-Type Milking Machine Mechanic (03/10/22 17:31) PT (03/10/22 17:31) Partial Thromboplastin Time. (03/10/22 17:31) D-Dimer (03/10/22 17:31) Xr Chest 1v (03/10/22 17:31) Ekg-Routine (03/10/22 17:31) Troponin I High Sensitivity (03/10/22 17:31) Covid19 Antigen Radha Vivi (03/10/22 17:31) Nitroglycerin (Nitrostat) (03/10/22 18:00) Aspirin (Aspirin) (03/10/22 17:37) Aspirin (Aspirin) (03/10/22 17:39) Vital Signs Date Time Temp Pulse Resp B/P (MAP) Pulse Ox O2 Delivery O2 Flow Rate FiO2 03/10/22 17:32 98.4 95 18 97 03/10/22 17:32 98.4 95 18 152/99 (116) 97 Room Air* 0 21 03/10/22 17:32 98.4 95 18 Administered Medications Medications (Trade) Dose Ordered Sig/Katrin Route PRN Reason Start Time Stop Time Status Last Admin Dose Admin Aspirin (Aspirin) 325 mg STAT STAT PO 03/10/22 17:37 03/10/22 17:38 DC 03/10/22 17:44 325 MG Nitroglycerin (Nitrostat) 0.4 mg PRN PRN SL CHEST PAIN 03/10/22 18:00 04/09/22 17:59 03/10/22 17:44 0.4 MG Laboratory Tests Test 03/10/22 17:28 03/10/22 17:31 White Blood Count 8.0 10^3/uL (4.5-11.0) Red Blood Count 4.87 10^6/uL (4.00-5.20) Hemoglobin 14.3 g/dL (12.0-15.0) Hematocrit 42.7 % (36.0-46.0) Mean Corpuscular Volume 87.7 fL (78-100) Mean Corpuscular Hemoglobin 29.4 pg (26-34) Mean Corpuscular Hemoglobin Concent 33.5 g/dL (33-36.5) Red Cell Distribution Width 13.7 % (11.5-14.5) Platelet Count 440 10^3/uL (150-400) H Mean Platelet Volume 8.6 fL (7.8-11.0) Neutrophils (%) (Auto) 63.0 % (41.0-85.0) Lymphocytes (%) (Auto) 27.5 % (24.0-44.0) Monocytes (%) (Auto) 7.6 % (5.0-12.0) Neutrophils # (Auto) 5.0 10^3/uL (1.8-7.7) Lymphocytes # (Auto) 2.20 10^3/uL1 (1.0-4.8) Monocytes # (Auto) 0.6 10^3/uL (0.3-0.8) Absolute Immature Granulocyte (auto 0.04 10^3 u/L (0-2) Absolute Eosinophils (auto) 0.1 10^3/uL (0.0-0.2) Immature Granulocytes % 0.50 % (0.00-0.50) Eosinophils % 0.9 % (0.0-5.0) Basophils % 0.5 % (0.0-0.2) H Basophils # 0.0 10^3/uL (0.0-0.1) Prothrombin Time 9.5 SEC (9.1-11.5) Prothrombin Time INR (Non-Therap) 0.9 Activated Partial Thromboplast Time 24.1 SEC (22.5-33.1) D-Dimer 0.47 mg/L (0.19-0.49) Sodium Level 137 mmol/L (132-145) Potassium Level 3.7 mmol/L (3.6-5.2) Chloride Level 103.0 mmol/L (96-109) Carbon Dioxide Level 23.5 mmol/L (20.0-32) Anion Gap 14.2 Blood Urea Nitrogen 9 mg/dL (7-18) Creatinine 0.67 mg/dL (0.59-1.40) Estimated GFR () 115.2 (>/=60) Est GFR (CKD-EPI)(Non-Afr Citizen Of [place]) 95.2 (>/=60) BUN/Creatinine Ratio 13.0 Glucose Level 101 mg/dL (70-110) Calcium Level 9.0 mg/dL (8.4-10.5) Total Bilirubin 0.2 mg/dL (0.2-1.0) Aspartate Amino Transferase (AST) 38 U/L (0-35) H Alanine Aminotransferase (ALT) 71 U/L (12-78) Alkaline Phosphatase 82 U/L (50-136) Total Creatine Kinase 191 U/L (26-192) Creatine Kinase MB 1.8 ng/mL (0.5-3.6) Troponin I High Sensitivity 5 ng/L (0-50) Pro-B-Type Natriuretic Peptide 47 pg/mL (0-125) Total Protein 8.8 g/dL (6.4-8.2) H Albumin 4.0 g/dL (3.4-5.0) Globulin 4.8 Albumin/Globulin Ratio 0.833 SARS-CoV-2 Antigen (Rapid) NEGATIVE (NEGATIVE) Progress Progress CXR: Mild pulmonary vascular congestion and interstitial prominence. Could indicate evolving CHF/fluid overload. 2. No focal consolidation. EKG/XRAY/CT/US EKG: NSR EKG Comments: HR 84, normal P axis ER DEPART Departure Time of Disposition: 18:39 Disposition: 09 ADMITTED INPATIENT Impression: Primary Impression: Chest pain Condition: Improved Referrals: PCP,UNKNOWN (PCP) PRIMARY CARE PROVIDER Additional Instructions: Admitted to Dr. Barcenas Duration or Time Spent with Pa: 45 min Problem Qualifiers Primary Impression: Chest pain Chest pain type: unspecified Qualified Codes: R07.9 - Chest pain, unspecified CLARA LUA MD Mar 10, 2022 18:11
[2022-03-10 20:30] VITALS: BP 166/91
--- NOTE | 2022-03-10 20:35 | NUR ---
REPORT REPORT PHONED TO ALEXANDRA PEREZ ON M/S.
[2022-03-11] VITALS: BP 131/76
[2022-03-11 04:00] VITALS: BP 143/84
--- NOTE | 2022-03-11 07:29 | PCM.HP ---
History of Present Illness History of Present Illness This 46 years old lady with a history of hypertension and dyslipoproteinemia as well as coronary artery disease s/p stenting in the past has apparently had a LAD stent approximately 6 to 7 years ago. Patient has had a manager cancer in [facility] of which she cannot recall and has not been seen by him for a long time. She has been complaining of right shoulder/chest pain intermittent for last several weeks and ultimately came into the emergency department at the [facility] for evaluation. She was given first dose of sublingual nitro for her chest pain and improved. Her initial evaluation revealed no evidence of elevated troponin and her EKG was normal. Evaluation of her musculoskeletal system revealed some tenderness in the right shoulder joint and pain in the joint upon abduction. The suspicion was at the time of the admission the patient may she most likely have noncardiac chest pain however it was difficult to make unequivocal decision therefore she was admitted to the hospital for further evaluation and rule out possible unstable angina. Her past medical history in addition to the above is that of the family history of diabetes as well as hypertension. And time of admission patient has had a chest x-ray that suggested mild pulmonary vascular congestion and interstitial prominence this was suggested to be possible evolving CHF or fluid overload however there was no evidence of focal consolidation and patient other blood work including the CBC was entirely normal with an exception of slight thrombocytosis with platelet count of 440 and slightly elevated AST at 38. Her COVID-19 serology was negative as was her D- dimer. EKG showed left anterior fascicular block and abnormal R wave progression borderline T wave abnormality anterior leads. Past Medical History Cardiac: CAD Hx Last Menstrual Period: November 2021/ on depo shot Travel Hx EBOLA RISK:Travel to/contact w: No Review of Systems Constitutional: No: Fever, Chills Eyes: No: Pain ENT: No: Ear pain Respiratory: Cough, Shortness of breath, SOB with excertion Cardiovascular: Chest Pain, Orthopnea Gastrointestinal: No: Nausea Genitourinary: No Dysuria Musculoskeletal: shoulder pain, arm pain Skin: No: Rash Neurological: Other; No: Weakness Allergies: Coded Allergies: No Known Allergies (Unverified , 12/15/20) Scheduled Aspirin (Aspirin), 81 MG PO DAILY24 Atorvastatin 40MG (Lipitor 40MG), 20 MG PO HS Clopidogrel Bisulfate (Clopidogrel), 75 MG PO DAILY Hydrochlorothiazide (Hydrochlorothiazide), 1 TAB PO DAILY, (Reported) Losartan Potassium (Cozaar), 50 MG PO DAILY24 Meloxicam (Mobic), 30 MG PO DAILY24 Scheduled PRN Nitroglycerin (Nitrostat), 0.4 MG SL PRN PRN for CHEST PAIN Discontinued Medications Acetaminophen With Codeine (Tylenol-Cod #3 Tablet), 1 TAB PO Q6 PRN for PAIN 7 - 10 Discontinued Reason: Discontinue VTE VTE Risk Total Score: 1 VTE Risk Score VTE Risk: Score 0-1 = Low Risk (Aggressive mobilization; early ambulation; no VTE prophylaxis required) Score 2: Moderate Risk (Intermittent/Pneumatic Compression Device OR Lovenox/Heparin/Coumadin) Score 3-4: High Risk (Intermittent/Pneumatic Compression Device AND Lovenox/Heparin/Coumadin) Score > or =5: Highest Risk (Intermittent/Pneumatic Compression Device AND Lovenox/Heparin/Coumadin) Antico:Hep/LMWH/Coum/Xarelto: No Mechanical device ordered: Yes VTE VTE Present on Admission: No Currently receiving anticoagul: No VTE Risk Total Score: 1 Antico:Hep/LMWH/Coum/Xarelto: No Mechanical device ordered: Yes Protocol for Platelet Monitori: Tx adjusted per protocol Exam Vital Signs Vital Signs Date Time Temp Pulse Resp B/P (MAP) Pulse Ox O2 Delivery O2 Flow Rate FiO2 03/11/22 04:00 98.2 86 18 143/84 (103) 97 Room Air* 0 21 General Appearance: Alert, Oriented X3, Cooperative, No acute distress HEENT: Atraumatic, PERRLA, EOMI Respiratory: Clear to auscultation Cardiovascular: Regular rate, Normal S1, Normal S2, No murmurs Abdominal: Normal bowel sounds, Soft, No tenderness, Other (Somewhat obese) Extremities: No clubbing, No edema, Other (Tenderness in the right shoulder joint upon abduction) Skin: No rash Neuro: Normal gait, Strength at 5/5 X4 ext Psych/Mental Status: Mental status NL, Other (Somewhat anxious) Assessment/Plan Assessment/Plan Assessment/Plan This lady with a history of hereditary disease s/p coronary intervention in the past comes in right now with a chest pain that is right-sided related to most likely her shoulder pain. Next line she will be monitored to the hospital and will order serial EKGs and troponin draws to determine whether indeed pain is cardiac related. If stable she may be discharged home within the next 24 hours to be followed up on outpatient basis by cardiology. Patient has a significant family of diabetes for mellitus in the family and khang ears to be prediabetic. We will discussed with patient dietary recommendation as it does not seem like she needs medication at this point. We will continue to manage patient chronic risk factors and 20 hyperlipidemia, hypertension and follow-up. Patient has been monitored for over the last 24 hours and was found to have no evidence of active/acute coronary disease her troponins were normal and so was her EKG. She has had x-ray of the right shoulder since no gross dislocation however she improved with anti-inflammatory medications which are being prescribed right now for her to go home with as she is stable and improved preparing for discharge. She may need to have conservative therapy for her likely presumed injury to her right rotator cuff. Patient should have outpatient MRI done if not better to determine whether she does have a condition that is potentially surgically treatable by skilled orthopedic surgeon. Patient should take medications as prescribed and in particular to take her Mobic and give right shoulder rest. She should try to sleep on the left shoulder instead as she is accustomed to sleep on the right at this point. Patient should adhere to 1800-calorie diabetic diet that she is prediabetic and with a family history of diabetes should avoid concentrated sweets and high carbohydrate diet. She should follow-up with a primary care provider within the next 7 to 10 days following the discharge for additional instructions she also should visit with manager cancer that she has seen previously in [facility] Problems: (1) Shoulder pain, right Status: Chronic ICD Code: M25.511 - Pain in right shoulder SNOMED: 31625428, 26028221 (2) Chest pain Status: Acute ICD Code: R07.9 - Chest pain, unspecified SNOMED: 79452872 (3) Hyperlipemia Status: Chronic ICD Code: E78.5 - Hyperlipidemia, unspecified SNOMED: 27981998 (4) Coronary artery disease Status: Chronic ICD Code: I25.10 - Atherosclerotic heart disease of [place] coronary artery without angina pectoris SNOMED: 37980849 (5) Hypertension Status: Chronic ICD Code: I10 - Essential (primary) hypertension SNOMED: 24486013 (6) Pre-diabetes Status: Acute ICD Code: R73.03 - Prediabetes SNOMED: 717236626 (7) Family history of diabetes mellitus ICD Code: Z83.3 - Family history of diabetes mellitus SNOMED: 166083295 Relation Details: G8 MOTHER; G8 FATHER Patient History: Diabetes mellitus G8 MOTHER G8 FATHER Hypertension G8 MOTHER G8 FATHER Problem Qualifiers (1) Shoulder pain, right: Chronicity: chronic Qualified Codes: M25.511 - Pain in right shoulder; G89.29 - Other chronic pain (2) Chest pain: Chest pain type: other chest pain Qualified Codes: R07.89 - Other chest pain (3) Hyperlipemia: Hyperlipidemia type: mixed hyperlipidemia Qualified Codes: E78.2 - Mixed hyperlipidemia (4) Coronary artery disease: Coronary Disease-Associated Artery/Lesion type: [place] artery [place] vs. transplanted heart: [place] heart Associated angina: unspecified whether angina present Qualified Codes: I25.10 - Atherosclerotic heart disease of [place] coronary artery without angina pectoris (5) Hypertension: Hypertension type: primary hypertension Qualified Codes: I10 - Essential (primary) hypertension MARNIE CARDONA Mar 11, 2022 07:29
[2022-03-11 07:39] LABS: BASOPHIL % 0.4 % (0.0-0.2); EOSINOPHIL # 0.1 10^3/uL (0.0-0.2); EOSINOPHIL % 1.3 % (0.0-5.0); LYMPHOCYTES # 1.81 10^3/uL1 (1.0-4.8); LYMPHOCYTES % 26.7 % (24.0-44.0); MEAN CORP HGB 29.2 pg (26-34); MONOCYTES # 0.5 10^3/uL (0.3-0.8); NEUTROPHIL # 4.3 10^3/uL (1.8-7.7); NEUTROPHILS % 63.2 % (41.0-85.0); RED CELL DISTRIBUTION WIDTH 13.9 % (11.5-14.5)
--- NOTE | 2022-03-11 08:10 | PCM.EKG ---
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
[2022-03-11] MEDS ORDERED: ULTRAM PO PRN (09:30)
[2022-03-11] MEDS ORDERED: TYLENOL PO PRN (09:30)
[2022-03-11] MEDS ORDERED: ASPIRIN EC PO SCH (09:30)
[2022-03-11] MEDS ORDERED: PROTONIX PO SCH (09:30)
--- NOTE | 2022-03-11 10:14 | DIREP ---
PROCEDURE:XRAY SHOULDER MIN 2 VWS-RT COMPARISON:None. INDICATIONS:Pain in the shoulder joint for last 3 months FINDINGS: BONES:Normal. JOINTS:Normal glenohumeral and acromioclavicular joints. No evidence for dislocation. SOFT TISSUES:Normal. OTHER:Normal. CONCLUSION:Normal right shoulder. Dictated by: Kana Rocha M.D. on 03/11/2022 at 10:12 AM
[2022-03-11 10:19] VITALS: BP 133/78
[2022-03-11] MEDS ORDERED: COZAAR PO SCH (13:00)
[2022-03-11] MEDS ORDERED: ASPI-667 PO (16:46)
[2022-03-11] MEDS ORDERED: ATOR40TA PO (16:46)
[2022-03-11] MEDS ORDERED: CLOP75TA PO (16:46)
[2022-03-11] MEDS ORDERED: LOSA50TA2 PO (16:46)
[2022-03-11] MEDS ORDERED: MELO15TA6 PO (16:46)
[2022-03-11 17:04] VITALS: BP 133/78
--- NOTE | 2022-03-11 17:06 | NUR ---
DISCHARGE PATIENT BEING DISCHARGED HOME AT THIS TIME IN STABLE CONDITION. PATIENT DENIES ANY ADDITIONAL RESOURCES AT THIS TIME. PATIENT WAS ASSISTED DOWNSTAIRS TO PRIVATE AUTO. RELINQUISHED CARE FOR PATIENT AT THIS TIME.
[2022-03-11] MEDS ORDERED: LIPITOR PO SCH ×2 (21:00)
[2022-03-12] MEDS ORDERED: PLAVIX PO SCH (09:00)
== END 2022-03-11 17:26 | disposition home or self-care (01) ==
LOC: ER 17:19 → MS 19:51
PROVIDERS: ADMIT Internal Medicine; ATTEND Internal Medicine
DX: R07.89 Other chest pain (principal); Z20.822 Contact with and (suspected) exposure to COVID-19; G89.29 Other chronic pain; M25.511 Pain in right shoulder; I44.4 Left anterior fascicular block; I10 Essential (primary) hypertension; I25.10 Atherosclerotic heart disease of native coronary artery without angina pectoris; E78.2 Mixed hyperlipidemia; R73.03 Prediabetes; Z95.5 Presence of coronary angioplasty implant and graft; Z83.3 Family history of diabetes mellitus; Z82.49 Family history of ischemic heart disease and other diseases of the circulatory system; Z79.899 Other long term (current) drug therapy
CPT/HCPCS: 36415; 71045; 73030; 80053 ×2; 80061; 82550; 82553; 83036; 83735; 83880; 84443; 84484 ×3; 85025 ×2; 85379; 85610; 85730; 87426; 93005 ×2; 99285; G0378 ×22